=== PATIENT | male | born 1935 | race Caucasian/White ===

== ENCOUNTER 2017-02-22 01:16 | Observation (INO) | payer OTHER ==
[~2017-02-22] VITALS: Ht 182.9 cm; Wt 109.3 kg
[2017-02-22] MEDS ORDERED: LISINOPRIL20 M1 PO (09:11)
[2017-02-22] MEDS ORDERED: ALLOPURINOL300 M1 PO (09:12)
[2017-02-22] MEDS ORDERED: METFORMIN HCL500 M3 PO (09:12)
[2017-02-22] MEDS ORDERED: LIPITOR20 M2 PO (09:13)
[2017-02-22] MEDS ORDERED: HYDROCHLOROTH12.5 M3 PO (09:13)
[2017-02-22] MEDS ORDERED: PAXIL10 M1 PO (09:14)
[2017-02-22] MEDS ORDERED: NORVASC5 M1 PO (09:14)
[2017-02-22] MEDS ORDERED: ELIQUIS5 M1 PO (09:15)
[2017-02-22] MEDS ORDERED: LATANOPROST2.5 ML OPH (09:16)
[2017-02-22] MEDS ORDERED: BETIMOL5 M1 OPH (09:16)
--- NOTE | 2017-02-22 12:43 | RADIOLOGY REPORT ---
EXAMINATION: XR PORTABLE CHEST CLINICAL INFORMATION: In PACU. Status post pacemaker placement. COMPARISON: None TECHNIQUE: Portable AP semierect view of the chest was obtained. FINDINGS: Left pectoral pacer generator box is seen in place with single lead extending into the right ventricle. No pneumothorax. The cardiomediastinal silhouette is distorted due to apical lordotic technique, but appears enlarged. Retrocardiac left lung base opacity is seen, likely due to technique of the film and patient's body habitus. Lobulation of the right hemidiaphragm is seen. Right lung is clear. Bony structures grossly unremarkable. IMPRESSION: 1. Single lead pacer in right ventricle. No pneumothorax. 2. Suspect cardiomegaly. 3. Opacity over the mid and lower left lung base likely due to technical factors and patient's body habitus. This impression could be confirmed by obtaining a PA and lateral view of the chest.
--- NOTE | 2017-02-22 13:23 | Operative Report ---
Operative/Inv Procedure Report Surgery Date: 02/22/17 Name of Procedure: Single chamber pacemaker implant Pre-Operative Diagnosis: SSS Post-Operative Diagnosis: cordell Estimated Blood Loss: scant Surgeon/Cardiopulmonary Physical Therapist: BRO LEDBETTER MD Anesthesia: moderate sedation Monitors: tely IV Fluids: ns Implants: pacer Urine Output: good Drains: none Complications: none Condition: stable Operative Indication: Sick sinus syndrome Operative/Procedure Note Note: PROCEDURE DESCRIPTION/FINDINGS: The patient was brought to the operating suite in a fasting state and was prepped and draped in the usual sterile fashion. Local anesthesia was instilled in the left subclavian artery and then incision was made in this area, parallel to the prepectoral fascia. left subclavian vein was entered percutaneously and the guidewire was placed under fluoroscopic guidance into the inferior vena cava. Pacemaker pocket was then fashioned and flooded with Kefzol solution. Kefzol-soaked sponge was placed into the pocket. Hemostasis was obtained. A 7 F Peel away sheet was introduced over guidewire. The ventricular lead was positioned in the right septal area and screwed into the myocardium. Pacing and sensing thresholds were obtained and they were adequate. The lead was then affixed into the pacemaker pocket using a single suture around the sleeve and into the prepectoral fascia. The lead was then affixed to the pacemaker pocket using a single suture around the fixation sleeve and into the prepectoral fascia. Hemostasis was again ensured. Kefzol soaked sponge was removed from the pacemaker pocket. Pacemaker generator was programmed to adequate parameters and was brought onto the surgical field. The lead pin was introduced into the pacemaker header. Screws were tightened. Proper pacemaker function was ensured. The pacing system was then introduced into the pocket. A final fluoroscopic check was performed and revealed good position of the leads and no evidence of retained needles or sponges. Needle and sponge counts were performed and were correct. The pocket was then closed in 3 layers of absorbable sutures including subcuticular stitch to approximate the skin. At the end of the procedure, the wound was dressed with Steri-Strips and covered with Tegaderm dressing. The patient was awakened and his left arm was restrained in a sling. He was transferred to the holding area in good condition. There were no complications encountered.
[2017-02-22 14:02] VITALS: BP 140/84
[2017-02-22] MEDS ORDERED: OMEGA 3-6-9 11200 MG PO (14:20)
--- NOTE | 2017-02-22 15:44 | RADIOLOGY REPORT ---
EXAMINATION:\H\ \N\XR CHEST/INTRAOPERATIVE FLUOROSCOPY CLINICAL INFORMATION: Pacemaker insertion in the OR. COMPARISON: Chest x-ray dated 02/22/2017. TECHNIQUE/FINDINGS: Fluoroscopic equipment was dedicated to the operating room for the performance of a pacemaker insertion. 2 fluoroscopic spot films were obtained and are archived in PACS for review. A left pectoral pacemaker generator is seen in place with attached single lead projecting over the right ventricle. FLUOROSCOPY TIME: 5.2 minutes. IMPRESSION: Pacemaker insertion with tip projected over the right ventricle.
[2017-02-22 15:53] VITALS: BP 138/70
[2017-02-22 17:23] VITALS: BP 124/72
[2017-02-22 22:00] VITALS: BP 126/70
--- NOTE | 2017-02-23 07:34 | Patient Discharge Instructions ---
Discharge Instructions General Discharge Information You were seen/treated for: Pacemaker implantation Special Instructions: Remove clear Tegaderm dressing on 02/25/17. Keep steri strips on. Diet Recommended Diet: Diabetic Acute Coronary Syndrome Inclusion Criteria At DC or during hospital stay patient has or had the following: ACS DIAGNOSIS No Discharge Core Measures Meds if any: Prescribed or Continued at Discharge Meds if any: NOT Prescribed or Continued at Discharge Congestive Heart Failure Inclusion Criteria At DC or during hospital stay patient has or had the following: CHF DIAGNOSIS No Discharge Core Measures Meds if any: Prescribed or Continued at Discharge Meds if any: NOT Prescribed or Continued at Discharge Cerebrovascular accident Inclusion Criteria At DC or during hospital stay patient has or had the following: CVA/TIA Diagnosis No Discharge Core Measures Meds if any: Prescribed or Continued at Discharge Meds if any: NOT Prescribed or Continued at Discharge Venous thromboembolism Inclusion Criteria VTE Diagnosis No VTE Type NONE VTE Confirmed by (Test) NONE Discharge Core Measures - Per Current guidelines, there needs to be overlap - treatment for the first 5 days of Warfarin therapy. - If discharged on Warfarin prior to 5 days of - overlap therapy, the patient will need to be - assessed for post discharge needs including - *Post discharge parental anticoagulation - *Warfarin and/or parental anticoagulation education - *Follow up date to check INR post discharge At least 5 days overlap therapy as Inpatient No Meds if any: Prescribed or Continued at Discharge Note: Overlap Therapy is Warfarin and Anticoagulant Meds if any: NOT Prescribed or Continued at Discharge
--- NOTE | 2017-02-23 07:38 | PN- Cardiology ---
See Addendum Subjective Subjective: No complaints Objective Vital Signs and I&Os Vital Signs Date Time Temp Pulse Resp B/P B/P Pulse O2 O2 Flow FiO2 Mean Ox Delivery Rate 02/22 2200 97.5 60 17 126/70 98 Room Air 02/22 1723 97.6 60 20 124/72 95 Room Air 02/22 1553 59 20 138/70 Room Air 02/22 1402 97.7 60 18 140/84 98 Room Air Intake & Output 02/23 0802/23 0000 02/22 1600 02/22 0802/22 0000 02/21 1600 Intake Total 250 630 Output Total Balance 250 630 Intake, IV 0 10 Intake, Oral 250 620 Number 0 Bowel Movements Patient 241 lb Weight Physical Exam: Lungs clear bilaterally Heart S1S2 regular Pacer incision-no hematoma, erythema or drainage Abdomen-soft, not tender, BS+, no organomegaly EXtr-no edema, 2+ pulses Results Recent Imaging Studies: Tele-AF, VVI pacing Assessment/Plan Assessment/Plan s/p pacemaker-doing well AF-controlled Plan: CXR, pacer interrogation-if OK, D/C home f/u with me next week Continue telemetry? Yes
[2017-02-23 08:26] VITALS: BP 120/80
--- NOTE | 2017-02-23 09:00 | RADIOLOGY REPORT ---
EXAMINATION: XR CHEST CLINICAL INFORMATION: Follow-up pacemaker placement COMPARISON: 02/22/2017 TECHNIQUE: 2 views of the chest were obtained. FINDINGS: Left pectoral region cardiac pulse generator with single, intact lead extending to the apex of the right ventricle. No pneumothorax or pleural effusion. Mild cardiomegaly with stable prominence of the central pulmonary vessels. No focal consolidation or acute interstitial pulmonary edema. No acute findings within the degenerated thoracic spine. IMPRESSION: 1. Single lead cardiac pacemaker terminates at the apex of the right ventricle. 2. Cardiomegaly without acute pulmonary edema.
[2017-02-23 11:02] VITALS: BP 122/74
== END 2017-02-23 11:55 ==
LOC: STS 01:16 → 1NO 11:30 → PACUH 11:30 → ENRESERV 12:06 → ENTRNSPT 13:23 → EDTRNSPTSTS 13:37 → 1NO 13:42 → CMPTRNSPT 13:47 → ENPENDDIS 02-23 07:35 → 1NO 02-23 11:55 → STS 02-24 07:00
PROVIDERS: ADMIT Internal Medicine Cardiovascular Disease
DX: I48.91 Unspecified atrial fibrillation (principal); Z79.01 Long term (current) use of anticoagulants; I10 Essential (primary) hypertension; Z85.46 Personal history of malignant neoplasm of prostate; K21.9 Gastro-esophageal reflux disease without esophagitis; E11.9 Type 2 diabetes mellitus without complications; M10.9 Gout, unspecified; H40.9 Unspecified glaucoma; M48.00 Spinal stenosis, site unspecified
CPT/HCPCS: 2000; 6020; 93005; 93010; C1786; C1898; G0378; J0690; J3370